=== PATIENT | female | born 1950 | race Caucasian/White ===

== ENCOUNTER 2019-05-27 07:46 | Day surgery (SDC) | payer MEDICARE ==
[2019-05-25 11:02] VITALS: BMI 27.9
[~2019-05-27 07:46] MED LIST: LACTATED RINGERS 1,000 ML IV SCH; LIDOCAINE 1% 20 ML VIAL (10MG/ML) FOR IV START INTRADERMA PRN; MIDAZOLAM 2 MG/2 ML VIAL IV PRN
[2019-05-27 08:27] VITALS: RESP 16; TEMP 98.7
[2019-05-27 08:33] LABS: Glucose,Whole Blood 141 mg/dL (75-99)
[2019-05-27] MEDS ORDERED: PROPOFOL 10 MG/ML 20 ML VIAL IV ONE (08:42)
[2019-05-27] MEDS ORDERED: LIDOCAINE 1% INJ 10MG/ML (20 ML MDV) ONE (08:42)
--- NOTE | 2019-05-27 08:53 | P.GSHP ---
History of Present Illness H&P Date: 05/27/19 CHIEF COMPLAINT: Colon screen HISTORY OF PRESENT ILLNESS: The patient is a 68-year-old female who presents for colon screen. Lower endoscopy was offered for further evaluation and management. PAST MEDICAL HISTORY: Please see list. PAST SURGICAL HISTORY: Please see list. MEDICATIONS: Please see list. ALLERGIES: Please see list. SOCIAL HISTORY: No illicit drug use FAMILY HISTORY: No reports of Crohn disease or ulcerative colitis. REVIEW OF ORGAN SYSTEMS: CONSTITUTIONAL: No reports of fevers or chills. PHYSICAL EXAM: VITAL SIGNS: Stable GENERAL: Well-developed pleasant in no acute distress. HEENT: No scleral icterus. Extraocular movements grossly intact. Moist buccal mucosa. NECK: Supple without lymphadenopathy. CHEST: Unlabored respirations. Equal bilateral excursions. CARDIOVASCULAR: Regular rate and rhythm. Distal 2+ pulses. ABDOMEN: Soft, nontender, nondistended. MUSCULOSKELETAL: No clubbing, cyanosis, or edema. ASSESSMENT: 1. Colon screen. PLAN: 1. Recommend proceeding with a lower endoscopy Past Medical History Past Medical History: Diabetes Mellitus, Eye Disorder, Hyperlipidemia, Hypertension Additional Past Medical History / Comment(s): HX PANCREATITIS. BILAT CATARACTS History of Any Multi-Drug Resistant Organisms: None Reported Past Surgical History: Cholecystectomy, Hysterectomy, Tubal Ligation Additional Past Surgical History / Comment(s): COLONOSCOPY Past Anesthesia/Blood Transfusion Reactions: No Reported Reaction Smoking Status: Never smoker - Past Family History Father Family Medical History: Cancer Medications and Allergies Home Medications Medication Instructions Recorded Confirmed Type Atorvastatin [Lipitor] 40 mg PO HS 05/25/19 05/25/19 History Enalapril Maleate [Vasotec] 2.5 mg PO DAILY 05/25/19 05/25/19 History metFORMIN HCL [Glucophage] 500 mg PO BID 05/25/19 05/25/19 History Allergies Allergy/AdvReac Type Severity Reaction Status Date / Time No Known Allergies Allergy Verified 05/27/19 08:04 Surgical - Exam Vital Signs Temp Pulse Resp BP Pulse Ox 98.7 F 93 16 145/75 97 05/27/19 08:20 05/27/19 08:20 05/27/19 08:20 05/27/19 08:20 05/27/19 08:20 Results - Labs Abnormal Lab Results - Last 24 Hours (Table) 05/27/19 Range/Units 08:24 POC Glucose (mg/dL) 141 H (75-99) mg/dL
--- NOTE | 2019-05-27 09:13 | P.PCN ---
Date of Procedure: 05/27/19 Description of Procedure: PREOPERATIVE DIAGNOSIS: Personal history of high-risk colon polyps Colonoscopy screening. POSTOPERATIVE DIAGNOSIS: Personal history of high-risk colon polyps Colonoscopy screening. Anal fissure with rectal bleeding External hemorrhoids OPERATION: Colonoscopy to the ascending colon SURGEON: Marina Crawley MD. ANESTHESIA: MAC. INDICATIONS: The patient is a 68-year-old female who presents for colonoscopy screening. Last colonoscopy over 5 years. Benefits and risks were described and informed consent was obtained. DESCRIPTION OF PROCEDURE: The patient had undergone Suprep. She had been brought into the operating room and laid in the left lateral decubitus position. After adequate intravenous sedation, the rectum was examined with 2% lidocaine jelly. External hemorrhoids were encountered. The rectal tone was within normal limits. No lesions were palpated in the rectal vault. An Olympus colonoscope was advanced to the ascending colon despite abdominal wall pressure and length of the colon. The prep was excellent with clear visualization of the mucosal folds. The scope was removed with visualization of each mucosal fold. No scattered diverticulosis was encountered. No large colonic polyps were found. No evidence of focal colitis was found. Retroflexion of the scope demonstrated grade 3 internal hemorrhoids without active bleeding or inflammation. The colon was desufflated. The patient had tolerated the procedure well. Withdrawal time was over 6 minutes. FINDINGS: Aronchick preparation quality scale 1 (1-5) Internal hemorrhoids, grade 3 External prolapsed hemorrhoids, grade 3 Anal fissure with bleeding, along left lateral cushion No arteriovenous malformations. No sigmoid diverticulosis No large adenomatous polyps. No focal colitis. RECOMMENDATIONS: Lower endoscopy in 5 years, 2024 Plan - Discharge Summary Discharge Rx Participant: No New Discharge Prescriptions: No Action Atorvastatin [Lipitor] 40 mg PO HS Enalapril Maleate [Vasotec] 2.5 mg PO DAILY metFORMIN HCL [Glucophage] 500 mg PO BID Discharge Medication List Atorvastatin [Lipitor] 40 mg PO HS 05/25/19 [History] Enalapril Maleate [Vasotec] 2.5 mg PO DAILY 05/25/19 [History] metFORMIN HCL [Glucophage] 500 mg PO BID 05/25/19 [History] Follow up Appointment(s)/Referral(s): Marina Crawley MD [STAFF PHYSICIAN] - 06/15/19 Patient Instructions/Handouts: Rectal Bleeding (DC), Anal Fissure (DC) Activity/Diet/Wound Care/Special Instructions: Repeat colonoscopy in 5 years, 2024 Discharge Disposition: HOME SELF-CARE
[2019-05-27 09:36] VITALS: BP 124/78; PULSE 87
== END 2019-05-27 09:51 | disposition home or self-care (01) ==
LOC: ORWHC2ENDO 07:46
PROVIDERS: ATTEND Surgery Plastic and Reconstructive Surgery
DX: Z12.11 Encounter for screening for malignant neoplasm of colon (principal); K60.2 Anal fissure, unspecified; K64.2 Third degree hemorrhoids; Z86.010 Personal history of colon polyps; E11.9 Type 2 diabetes mellitus without complications; E78.5 Hyperlipidemia, unspecified; I10 Essential (primary) hypertension; H26.9 Unspecified cataract; Z87.19 Personal history of other diseases of the digestive system; Z90.49 Acquired absence of other specified parts of digestive tract; Z90.710 Acquired absence of both cervix and uterus; Z98.51 Tubal ligation status; Z79.84 Long term (current) use of oral hypoglycemic drugs; Z79.899 Other long term (current) drug therapy
CPT/HCPCS: J2001; J2704; G0105

== ENCOUNTER → 2022-06-27 | Outpatient (CLI) | payer MEDICARE ==
[2022-06-27 09:33] VITALS: BP 162/85; PULSE 92; RESP 17; TEMP 96.9
--- NOTE | 2022-06-27 09:58 | P.PN ---
Subjective Progress Note Date: 06/27/22 Principal diagnosis: right breast fat necrosis Ashly timmons a 72-year-old white female seen in consultation for Dorota Welsh regarding the right breast mammographic abnormality. She underwent a screening mammogram 05-10-22 which resulted in a diagnostic right breast mammogram. The diagnostic reports mammogram was performed with 2723. This revealed suspicious calcifications in the right breast at the 3 o'clock position. The complain of any new lumps masses or nodules of concern in either breast. Never had any surgery or biopsies on her breasts. She is not complaining of any skin changes or nipple discharge. She has not had any recent trauma or infection in the breast. 06-27-22 The patient on 06-21-22 underwent a sterobiopsy of the right breast. Pathology was fibrosis/scar and fat necrosis. It was felt to be concordant. She did develop some ecchymosis following the procedure. She is doing well at this time. Caffeine: 1 pop/day nicotine: none chocolate: occasional BCP: < 1 year Family History: father: head and neck cancer Hormonal History: menarche: 17 , breast fed: no, age at first : 22 menopause: hysterectomy at 33, left ovaries, done for prolapse hormones: none Surgical history: Hysterectomy gallbaldder tubaligation appy bilateral cataract surgery Medical History: pancreatitis in the past diabetic HTN high cholesterol Social History: nicotine: Negative Alcohol: Negative Drugs: Negative - Constitutional Constitutional: Denies chills, Denies fever - EENT Eyes: denies blurred vision, denies pain Ears: bilateral: decreased hearing, deny: tinnitus Ears, nose, mouth and throat: Denies headache, Denies sore throat - Breasts Breasts: bilateral: as per HPI - Cardiovascular Cardiovascular: Denies chest pain, Denies shortness of breath - Respiratory Respiratory: Denies cough - Gastrointestinal Gastrointestinal: Reports constipation, Denies abdominal pain, Denies diarrhea, Denies nausea, Denies vomiting - Genitourinary (Female) Genitourinary: Denies dysuria, Denies hematuria - Menstruation Menstruation: Reports as per HPI - Musculoskeletal Musculoskeletal: Denies myalgias - Integumentary Integumentary: Denies pruritus, Denies rash - Neurological Neurological: Denies numbness, Denies weakness - Psychiatric Psychiatric: Denies anxiety, Denies depression - Endocrine Comment: diabetes - Hematologic/Lymphatic Comment: none - Allergic/Immunologic Allergic/Immunologic: Reports as per HPI Past Medical History Past Medical History: Diabetes Mellitus, Eye Disorder, Hyperlipidemia, Hypertension Additional Past Medical History / Comment(s): HX PANCREATITIS. BILAT CATARACTS History of Any Multi-Drug Resistant Organisms: None Reported Past Surgical History: Appendectomy, Cholecystectomy, Hysterectomy, Tubal Ligation Additional Past Surgical History / Comment(s): COLONOSCOPY Past Anesthesia/Blood Transfusion Reactions: No Reported Reaction Past Psychological History: No Psychological Hx Reported Past Alcohol Use History: None Reported Past Drug Use History: None Reported - Past Family History Father Family Medical History: Cancer Medications and Allergies Home Medications Medication Instructions Recorded Confirmed Type Atorvastatin [Lipitor] 40 mg PO HS 05/25/19 06/21/22 History Enalapril Maleate [Vasotec] 2.5 mg PO DAILY 05/25/19 06/21/22 History metFORMIN HCL [Glucophage] 500 mg PO BID 05/25/19 06/21/22 History Allergies Allergy/AdvReac Type Severity Reaction Status Date / Time No Known Allergies Allergy Verified 06/21/22 07:23 Surgical - Exam - General no distress - Eyes normal ocular movement - Neck trachea midline - Respiratory normal respiratory effort - Cardiovascular Heart Sounds: normal: S1, S2 - Abdomen Abdomen: soft, non tender, no guarding, no rigid, no rebound - Integumentary normal turgor - Neurologic no disoriented, no combative - Musculoskeletal kyphosis normal gait - Psychiatric oriented to time, oriented to person, oriented to place, speech is normal, memory intact Breast Exam: BRA: 38B Inspection: Bilateral grade 2/3 ptosis Palpation: Right breast: Multi-positional exam no dominant masses or nodules of concern, fibrocystic changes, particularly attention to the 3 o'clock position does not reveal any discrete masses or nodules Right axilla: No adenopathy of concern Left breast: Multiple positional exam fibrocystic changes no dominant masses or nodules of concern Left axilla: No adenopathy of concern Results Reviewed in detail with the radiologist Dr. Henry Assessment and Plan Assessment: : Microcalcifications of concern 3 o'clock position right breast Plan: Stereotactic core biopsy right breast Risk and benefits of the procedure discussed with the patient and her daughter. Risks include but are not limited to bleeding, infection, reaction to the anesthetic. If the biopsy results were discordant further tissue acquisition may be necessary. The patient and her daughter understand and wish to proceed. CC: Mayte Villalobos Additional CC's: Dorota Welsh Objective - Vital Signs Vital signs: Vital Signs Temp 96.9 F L 06/27/22 09:29 Pulse 92 06/27/22 09:29 Resp 17 06/27/22 09:29 BP 162/85 06/27/22 09:29 Pulse Ox 99 06/27/22 09:29 FiO2 Intake & Output 06/26/22 06/27/22 06/27/22 18:59 06:59 18:59 Weight 69.853 kg - Constitutional General appearance: Present: cooperative - EENT ENT: Present: hearing grossly normal - Neck Neck: Present: normal ROM - Respiratory Respiratory: bilateral: CTA - Cardiovascular Heart sounds: normal: S1, S2 - Integumentary Integumentary Comment(s): echymosis right breast biopsy site small hematoma No evidence of infection - Musculoskeletal Musculoskeletal: Present: gait normal - Psychiatric Psychiatric: Present: A&O x's 3, appropriate affect, intact judgment & insight Assessment and Plan Assessment: Impression: Benign stereotactic core biopsy right breast [id number] Plan: Repeat right breast mammogram in 6 months with physician exam at that time Patient to follow up sooner any questions or concerns CC: Dorota Welsh
== END ==
LOC: WWCWWP 09:11
PROVIDERS: ATTEND Surgery
DX: Z85.3 Personal history of malignant neoplasm of breast (principal); R92.8 Other abnormal and inconclusive findings on diagnostic imaging of breast; I10 Essential (primary) hypertension; E11.9 Type 2 diabetes mellitus without complications; E78.5 Hyperlipidemia, unspecified; E78.00 Pure hypercholesterolemia, unspecified; Z79.84 Long term (current) use of oral hypoglycemic drugs

== ENCOUNTER → 2022-07-02 | Outpatient (CLI) | payer MEDICARE ==
[2022-07-02 11:47] VITALS: BP 160/84; PULSE 90; RESP 18; TEMP 97.5
--- NOTE | 2022-07-02 11:56 | P.PN ---
Progress Note - Text Progress Note Date: 07/02/22 The patient on 06-21-22 underwent a sterobiopsy of the right breast. Pathology was fibrosis/scar and fat necrosis. It was felt to be concordant. She did develop some ecchymosis following the procedure. She is at this site. Examination: Ecchymosis of the inferior aspect of the breast, hematoma at the biopsy site was some oozing at the site no evidence of infection Plan: Continue present care Follow up in 6 weeks Right breast mammogram 6 months from the procedure but the appointment at that time CC: Dorota Welsh
== END ==
LOC: WWCWWP 11:33
PROVIDERS: ATTEND Surgery
DX: Z04.9 Encounter for examination and observation for unspecified reason (principal)

== ENCOUNTER → 2022-08-22 | Outpatient (CLI) | payer MEDICARE ==
[2022-08-22 11:28] VITALS: BP 145/80; PULSE 87; RESP 16; TEMP 98
--- NOTE | 2022-08-22 11:38 | P.PN ---
Subjective Progress Note Date: 08/22/22 The patient on 06-21-22 underwent a sterobiopsy of the right breast. Pathology was fibrosis/scar and fat necrosis. It was felt to be concordant. She did develop some ecchymosis following the procedure. She is following up to have this rechecked. Objective - Vital Signs Vital signs: Vital Signs Temp 98.0 F 08/22/22 11:25 Pulse 87 08/22/22 11:25 Resp 16 08/22/22 11:25 BP 145/80 08/22/22 11:25 Pulse Ox 99 08/22/22 11:25 FiO2 Intake & Output 08/21/22 08/22/22 08/22/22 18:59 06:59 18:59 Weight 69.4 kg - Constitutional General appearance: Present: cooperative - EENT Eyes: Present: EOMI ENT: Present: hearing grossly normal - Neck Neck: Present: normal ROM - Integumentary Integumentary Comment(s): Examination of the right breast does not reveal any hematoma or ecchymosis Assessment and Plan Assessment: Impression/Plan: Right breast status post stereotactic core biopsy benign concordant Patient have repeat right breast mammogram December 2022 to follow up at that time bilateral mammogram in April 2023 CC: Mayte Welsh
== END ==
LOC: WWCWWP 10:56
PROVIDERS: ATTEND Surgery
DX: Z85.3 Personal history of malignant neoplasm of breast (principal)

== ENCOUNTER → 2022-12-23 | Outpatient (CLI) | payer MEDICARE ==
--- NOTE | 2022-12-23 10:39 | MM ---
Reason for Exam: Follow-up at short interval from prior study. Last screening mammogram was performed 7 month(s) ago. Patient History: Menarche at age 17. First Full-Term at age 22. Hysterectomy at age 33. Postmenopausal. 06/21/2022, Benign MG stereo VAD BX RT on the right side. Risk Values: Deborah 5 year model risk: 1.7%. NCI Lifetime model risk: 4.7%. Prior Study Comparison: 05/02/2021 Bilateral Screening Mammogram, [facility]. 05/10/2022 Bilateral Screening Mammogram, [facility]. 05/21/2022 Right MG work up mamm w CAD RT, [facility]. Tissue Density: Right: There are scattered fibroglandular densities. Findings: Analyzed By CAD. Postbiopsy changes right breast. Stable benign calcification upper-outer right breast. No evidence for mass or distortion. Overall Assessment: Benign, BI-RAD 2 Management: Screening Mammogram of both breasts in 6 months. . Results were given to the patient verbally at the time of exam. Patient should continue monthly self-breast exams. A clinical breast exam by your physician is recommended on an annual basis. This exam should not preclude additional follow-up of suspicious palpable abnormalities. Note on Deborah scores and lifetime risk: 1. A Deborah score greater than 3% is considered moderate risk. If this is the case, consider specialist referral to assess eligibility for a risk reducing agent. 2. If overall lifetime risk for the development of breast cancer is 20% or higher, the patient may qualify for future screening with alternating mammogram and breast MRI. Electronically signed and approved by: Chris Ruano M.D. Radiologis
== END | disposition home or self-care (01) ==
LOC: RADMAMWWP 09:31
PROVIDERS: ATTEND Surgery
DX: R92.8 Other abnormal and inconclusive findings on diagnostic imaging of breast (principal); Z78.0 Asymptomatic menopausal state
CPT/HCPCS: 77065; G0279; 77061

== ENCOUNTER → 2022-12-26 | Outpatient (CLI) | payer MEDICARE ==
--- NOTE | 2022-12-26 11:18 | P.PN ---
Subjective Progress Note Date: 12/26/22 Principal diagnosis: Fibrocystic breast changes right breast fat necrosis Ashly timmons a 72-year-old white female seen in consultation for Dorota Welsh regarding the right breast mammographic abnormality. She underwent a screening mammogram 05-10-22 which resulted in a diagnostic right breast mammogram. The diagnostic reports mammogram was performed with 2722. This revealed suspicious calcifications in the right breast at the 3 o'clock position. The complain of any new lumps masses or nodules of concern in either breast. Never had any surgery or biopsies on her breasts. She is not complaining of any skin changes or nipple discharge. She has not had any recent trauma or infection in the breast. 06-27-22 The patient on 06-21-22 underwent a sterobiopsy of the right breast. Pathology was fibrosis/scar and fat necrosis. It was felt to be concordant. She did dev elop some ecchymosis following the procedure. She is doing well at this time. 12-26-22 She is not complaining of any new lumps masses or nodules of concern in either breast. She underwent a right breast mammogram on which was benign thyroid to Caffeine: 1 pop/day nicotine: none chocolate: occasional BCP: < 1 year Family History: father: head and neck cancer Hormonal History: menarche: 17 , breast fed: no, age at first : 22 menopause: hysterectomy at 33, left ovaries, done for prolapse hormones: none Surgical history: Hysterectomy gallbaldder tubaligation appy bilateral cataract surgery Medical History: pancreatitis in the past diabetic HTN high cholesterol Social History: nicotine: Negative Alcohol: Negative Drugs: Negative - Constitutional Constitutional: Denies chills, Denies fever - EENT Eyes: denies blurred vision, denies pain Ears: bilateral: decreased hearing, deny: tinnitus Ears, nose, mouth and throat: Denies headache, Denies sore throat - Breasts Breasts: bilateral: as per HPI - Cardiovascular Cardiovascular: Denies chest pain, Denies shortness of breath - Respiratory Respiratory: Denies cough - Gastrointestinal Gastrointestinal: Reports constipation, Denies abdominal pain, Denies diarrhea, Denies nausea, Denies vomiting - Genitourinary (Female) Genitourinary: Denies dysuria, Denies hematuria - Menstruation Menstruation: Reports as per HPI - Musculoskeletal Musculoskeletal: Denies myalgias - Integumentary Integumentary: Denies pruritus, Denies rash - Neurological Neurological: Denies numbness, Denies weakness - Psychiatric Psychiatric: Denies anxiety, Denies depression - Endocrine Comment: diabetes - Hematologic/Lymphatic Comment: none - Allergic/Immunologic Allergic/Immunologic: Reports as per HPI Past Medical History Past Medical History: Diabetes Mellitus, Eye Disorder, Hyperlipidemia, Hypertension Additional Past Medical History / Comment(s): HX PANCREATITIS. BILAT CATARACTS History of Any Multi-Drug Resistant Organisms: None Reported Past Surgical History: Appendectomy, Cholecystectomy, Hysterectomy, Tubal Ligation Additional Past Surgical History / Comment(s): COLONOSCOPY Past Anesthesia/Blood Transfusion Reactions: No Reported Reaction Past Psychological History: No Psychological Hx Reported Past Alcohol Use History: None Reported Past Drug Use History: None Reported - Past Family History Father Family Medical History: Cancer Medications and Allergies Home Medications Medication Instructions Recorded Confirmed Type Atorvastatin [Lipitor] 40 mg PO HS 05/25/19 06/21/22 History Enalapril Maleate [Vasotec] 2.5 mg PO DAILY 05/25/19 06/21/22 History metFORMIN HCL [Glucophage] 500 mg PO BID 05/25/19 06/21/22 History Allergies Allergy/AdvReac Type Severity Reaction Status Date / Time No Known Allergies Allergy Verified 06/21/22 07:23 Surgical - Exam - General no distress - Eyes normal ocular movement - Neck trachea midline - Respiratory normal respiratory effort - Cardiovascular Heart Sounds: normal: S1, S2 - Abdomen Abdomen: soft, non tender, no guarding, no rigid, no rebound - Integumentary normal turgor - Neurologic no disoriented, no combative - Musculoskeletal kyphosis normal gait - Psychiatric oriented to time, oriented to person, oriented to place, speech is normal, memory intact Breast Exam: BRA: 38B Inspection: Bilateral grade 2/3 ptosis Palpation: Right breast: Multi-positional exam no dominant masses or nodules of concern, fibrocystic changes, particularly attention to the 3 o'clock position does not reveal any discrete masses or nodules Right axilla: No adenopathy of concern Left breast: Multiple positional exam fibrocystic changes no dominant masses or nodules of concern Left axilla: No adenopathy of concern Results Reviewed in detail with the radiologist Dr. Henry Assessment and Plan Assessment: : Microcalcifications of concern 3 o'clock position right breast Plan: Stereotactic core biopsy right breast Risk and benefits of the procedure discussed with the patient and her daughter. Risks include but are not limited to bleeding, infection, reaction to the anesthetic. If the biopsy results were discordant further tissue acquisition may be necessary. The patient and her daughter understand and wish to proceed. CC: Mayte Villalobos Additional CC's: Dorota Welsh Objective - Constitutional General appearance: Present: cooperative - EENT Eyes: Present: EOMI ENT: Present: hearing grossly normal - Neck Neck: Present: normal ROM - Respiratory Respiratory: bilateral: CTA - Cardiovascular Rhythm: regular Heart sounds: normal: S1, S2 - Integumentary Integumentary: Present: normal turgor - Musculoskeletal Musculoskeletal: Present: gait normal - Psychiatric Psychiatric: Present: A&O x's 3, appropriate affect, intact judgment & insight - Additional findings Additional findings: Breast Exam: BRA: 38B Impression: Bilateral grade 3 ptosis Palpation: Right breast: Multiple positional exam no dominant masses or nodules of concern Right axilla: No adenopathy of concern Left breast: Multiple positional exam no dominant masses or nodules of concern Left axilla: No adenopathy of concern Assessment and Plan Assessment: Impression: Benign stereotactic core biopsy right breast [id number], Right breast mammogram on 12-23-22 BIRAD 2 Plan: Repeat bilateral mammogram April 2023 with appointment Patient to follow up sooner any questions or concerns CC: Dorota Welsh
== END ==
LOC: WWCWWP 10:46
PROVIDERS: ATTEND Surgery
DX: R92.8 Other abnormal and inconclusive findings on diagnostic imaging of breast (principal); N60.11 Diffuse cystic mastopathy of right breast; E78.00 Pure hypercholesterolemia, unspecified; I10 Essential (primary) hypertension; E11.39 Type 2 diabetes mellitus with other diabetic ophthalmic complication; N64.1 Fat necrosis of breast; Z79.84 Long term (current) use of oral hypoglycemic drugs; Z90.49 Acquired absence of other specified parts of digestive tract; Z98.41 Cataract extraction status, right eye; Z98.42 Cataract extraction status, left eye

== ENCOUNTER → 2023-05-12 | Outpatient (CLI) | payer MEDICARE ==
--- NOTE | 2023-05-13 08:15 | MM ---
Reason for Exam: Screening (asymptomatic). Last screening mammogram was performed 11 month(s) ago. Patient History: Menarche at age 17. First Full-Term at age 22. Hysterectomy at age 33. Postmenopausal. 06/21/2022, Benign MG stereo VAD BX RT on the right side. Risk Values: Deborah 5 year model risk: 1.7%. NCI Lifetime model risk: 4.7%. Prior Study Comparison: 05/02/2021 Bilateral Screening Mammogram, [facility]. 05/10/2022 Bilateral Screening Mammogram, [facility]. 05/21/2022 Right MG work up mamm w CAD RT, [facility]. 12/23/2022 Right MG 3D diag mammo w/cad RT, [facility]. Tissue Density: There are scattered fibroglandular densities. Findings: Analyzed By CAD. There is no suspicious group of microcalcifications or new suspicious mass in either breast. Overall Assessment: Benign, BI-RAD 2 Management: Screening Mammogram of both breasts in 1 year. . Patient should continue monthly self-breast exams. A clinical breast exam by your physician is recommended on an annual basis. This exam should not preclude additional follow-up of suspicious palpable abnormalities. Note on Deborah scores and lifetime risk: 1. A Deborah score greater than 3% is considered moderate risk. If this is the case, consider specialist referral to assess eligibility for a risk reducing agent. 2. If overall lifetime risk for the development of breast cancer is 20% or higher, the patient may qualify for future screening with alternating mammogram and breast MRI. Electronically signed and approved by: Chris Ruano M.D. Radiologis
== END | disposition home or self-care (01) ==
LOC: RADMAMWWP 10:49
PROVIDERS: ATTEND Surgery
DX: Z12.31 Encounter for screening mammogram for malignant neoplasm of breast (principal); Z78.0 Asymptomatic menopausal state
CPT/HCPCS: 77063; 77067

== ENCOUNTER → 2023-05-16 | Outpatient (CLI) | payer MEDICARE ==
--- NOTE | 2023-05-16 11:38 | P.PN ---
Subjective Progress Note Date: 05/16/23 Principal diagnosis: fibrocystic breast disease 05-16-23 Principal diagnosis: Fibrocystic breast changes right breast fat necrosis Ashly timmons a 72-year-old white female seen in consultation for Dorota Welsh regarding the right breast mammographic abnormality. She underwent a screening mammogram 05-10-22 which resulted in a diagnostic right breast mammogram. The diagnostic reports mammogram was performed with [id number]. This revealed suspicious calcifications in the right breast at the 3 o'clock position. She did not complain of any new lumps masses or nodules of concern in either breast. Never had any surgery or biopsies on her breasts. She was not complaining of any skin changes or nipple discharge. She had not had any recent trauma or infection in the breast. The patient on 06-21-22 underwent a sterobiopsy of the right breast. Pathology was fibrosis/scar and fat necrosis. It was felt to be concordant. She did develop some ecchymosis following the procedure. She is doing well at this time. She underwent a right breast mammogram on BIRAD 2 She had a bilateral mammogram on 05-02-23 BIRAD 2; she is not complaining of any new lumps masses or nodules of concern in either breast Caffeine: 1 pop/day nicotine: none chocolate: occasional BCP: < 1 year Family History: father: head and neck cancer Hormonal History: menarche: 17 , breast fed: no, age at first : 22 menopause: hysterectomy at 33, left ovaries, done for prolapse hormones: none Surgical history: Hysterectomy gallbaldder tubaligation appy bilateral cataract surgery Medical History: pancreatitis in the past diabetic HTN high cholesterol Social History: nicotine: Negative Alcohol: Negative Drugs: Negative - Constitutional Constitutional: Denies chills, Denies fever - EENT Eyes: denies blurred vision, denies pain Ears: bilateral: decreased hearing, deny: tinnitus Ears, nose, mouth and throat: Denies headache, Denies sore throat - Breasts Breasts: bilateral: as per HPI - Cardiovascular Cardiovascular: Denies chest pain, Denies shortness of breath - Respiratory Respiratory: Denies cough - Gastrointestinal Gastrointestinal: Reports constipation, Denies abdominal pain, Denies diarrhea, Denies nausea, Denies vomiting - Genitourinary (Female) Genitourinary: Denies dysuria, Denies hematuria - Menstruation Menstruation: Reports as per HPI - Musculoskeletal Musculoskeletal: Denies myalgias - Integumentary Integumentary: Denies pruritus, Denies rash - Neurological Neurological: Denies numbness, Denies weakness - Psychiatric Psychiatric: Denies anxiety, Denies depression - Endocrine Comment: diabetes - Hematologic/Lymphatic Comment: none - Allergic/Immunologic Allergic/Immunologic: Reports as per HPI Past Medical History Past Medical History: Diabetes Mellitus, Eye Disorder, Hyperlipidemia, Hypertension Additional Past Medical History / Comment(s): HX PANCREATITIS. BILAT CATARACTS History of Any Multi-Drug Resistant Organisms: None Reported Past Surgical History: Appendectomy, Cholecystectomy, Hysterectomy, Tubal Ligation Additional Past Surgical History / Comment(s): COLONOSCOPY Past Anesthesia/Blood Transfusion Reactions: No Reported Reaction Past Psychological History: No Psychological Hx Reported Past Alcohol Use History: None Reported Past Drug Use History: None Reported - Past Family History Father Family Medical History: Cancer Medications and Allergies Home Medications Medication Instructions Recorded Confirmed Type Atorvastatin [Lipitor] 40 mg PO HS 05/25/19 06/21/22 History Enalapril Maleate [Vasotec] 2.5 mg PO DAILY 05/25/19 06/21/22 History metFORMIN HCL [Glucophage] 500 mg PO BID 05/25/19 06/21/22 History Allergies Allergy/AdvReac Type Severity Reaction Status Date / Time No Known Allergies Allergy Verified 06/21/22 07:23 Objective - Constitutional General appearance: Present: cooperative - EENT Eyes: Present: EOMI ENT: Present: hearing grossly normal - Neck Neck: Present: normal ROM - Respiratory Respiratory: bilateral: CTA - Cardiovascular Heart sounds: normal: S1, S2 - Integumentary Integumentary: Present: normal turgor - Musculoskeletal Musculoskeletal: Present: gait normal - Psychiatric Psychiatric: Present: A&O x's 3, appropriate affect, intact judgment & insight - Additional findings Additional findings: Breast Exam: BRA: 38B Impression: Bilateral grade 3 ptosis Palpation: Right breast: Multi-positional exam no dominant masses or nodules of concern Right axilla: No adenopathy of concern Left breast: Multi- positional exam no dominant masses or nodules of concern Left axilla: No adenopathy of concern Assessment and Plan Assessment: Impression: Benign stereotactic core biopsy right breast [id number], Right breast mammogram on 12-23-22 BIRAD 2 bilateral mammogram 05-02-23 BIRAD 2 personally reviewed Plan: Repeat bilateral mammogram April 2024 with appointment Patient to follow up sooner any questions or concerns CC: Dorota Welsh
== END ==
LOC: WWCWWP 11:26
PROVIDERS: ATTEND Surgery
DX: N64.1 Fat necrosis of breast (principal); N60.11 Diffuse cystic mastopathy of right breast; E11.9 Type 2 diabetes mellitus without complications; I10 Essential (primary) hypertension; E78.00 Pure hypercholesterolemia, unspecified; Z90.710 Acquired absence of both cervix and uterus; Z98.890 Other specified postprocedural states; Z79.84 Long term (current) use of oral hypoglycemic drugs

== ENCOUNTER → 2024-05-03 | Outpatient (CLI) | payer MEDICARE ==
--- NOTE | 2024-05-03 13:56 | MM ---
Reason for Exam: Screening (asymptomatic). Last screening mammogram was performed 12 month(s) ago. Patient History: Menarche at age 17. First Full-Term at age 22. Hysterectomy at age 33. Postmenopausal. 06/21/2022, Benign MG stereo VAD BX RT on the right side. Risk Values: Deborah 5 year model risk: 1.7%. NCI Lifetime model risk: 4.4%. Prior Study Comparison: 05/21/2022 Right MG work up mamm w CAD RT, [facility]. 12/23/2022 Right MG 3D diag mammo w/cad RT, [facility]. 05/12/2023 Bilateral MG 3D screening mammo w/cad, [facility]. Tissue Density: There are scattered areas of fibroglandular density. Findings: Analyzed By CAD. Microclip right breast from prior biopsy. There is no suspicious group of microcalcifications or new suspicious mass in either breast. Overall Assessment: Benign, BI-RAD 2 Management: Screening Mammogram of both breasts in 1 year. . Patient should continue monthly self-breast exams. A clinical breast exam by your physician is recommended on an annual basis. This exam should not preclude additional follow-up of suspicious palpable abnormalities. Note on Deborah scores and lifetime risk: 1. A Deborah score greater than 3% is considered moderate risk. If this is the case, consider specialist referral to assess eligibility for a risk reducing agent. 2. If overall lifetime risk for the development of breast cancer is 20% or higher, the patient may qualify for future screening with alternating mammogram and breast MRI. [facility], , 05/03/2024 1:54 PM. Electronically signed and approved by: Peyton Henry M.D. Radiologist
== END | disposition home or self-care (01) ==
LOC: RADMAMWWP 10:46
PROVIDERS: ATTEND Surgery
DX: Z12.31 Encounter for screening mammogram for malignant neoplasm of breast (principal); Z78.0 Asymptomatic menopausal state; R92.323 Mammographic fibroglandular density, bilateral breasts; Z98.82 Breast implant status
CPT/HCPCS: 77063; 77067